=== PATIENT | female | born 1960 | race Caucasian/White ===

== ENCOUNTER 2022-01-05 15:12 | Emergency (ER) | payer BC ==
[~2022-01-05] VITALS: Ht 167.6 cm; Wt 104.5 kg
[2022-01-05 15:15] VITALS: BP 117/70
[2022-01-05] MEDS ORDERED: DOXY-350 PO (15:30)
[2022-01-05] MEDS ORDERED: LISI10TA22 PO (15:30)
[2022-01-05] MEDS ORDERED: LIDOCAINE 1% MDV 20ML VIAL SC ONE (16:10)
[2022-01-05] MEDS ORDERED: DOXY-443 PO (16:58)
== END 2022-01-05 17:10 | disposition home or self-care (01) ==
LOC: M ED 15:12
DX: L02.232 Carbuncle of back [any part, except buttock and flank] (principal); I10 Essential (primary) hypertension; Z79.899 Other long term (current) drug therapy; Z85.44 Personal history of malignant neoplasm of other female genital organs; Z91.040 Latex allergy status

== ENCOUNTER → 2022-02-04 | Outpatient (REF) | payer BC ==
[~2022-02-04] MED LIST: DOXY-350 PO; DOXY-443 PO; LISI10TA22 PO
== END ==
LOC: M LAB REF 16:59
PROVIDERS: ATTEND Surgery
DX: L72.0 Epidermal cyst (principal)